=== PATIENT | male | born 1990 | race African-American/Black ===

== ENCOUNTER 2023-06-14 06:54 | Emergency (ER) | payer BC, SELFPAY ==
--- NOTE | ~2023-06-14 | XR_ITS ---
AP and lateral views of the left tibia/fibula Clinical History: Pain Findings: No acute fracture or dislocation is seen. Osseous alignment is anatomic. Joint spaces are p reserved without significant erosive or degenerative change. Soft tissues are unremarkable. Impression: Unremarkable left tib-fib radiographs. Reviewed, dictated and finalized at location . Impression: Unremarkable left tib-fib radiographs.
--- NOTE | ~2023-06-14 | XR_ITS ---
Left ankle Technique: AP, oblique, and lateral views were obtained. Clinical History: Pain Findings: No acute fracture or dislocation is seen. Osseous alignment is anatomic. Ankle mortise and other visualized joint spaces are preserved. Soft tissues are otherwise unremarkable. Impression: No acute fracture or dislocation. Reviewed, dictated and finalized at location . Impression: No acute fracture or dislocation.
[2023-06-14 07:02] VITALS: BP 140/79; PULSE 85; RESP 16; TEMP 36.8; O2SAT 100
--- NOTE | 2023-06-14 07:43 | ED.LOWEXIN ---
HPI - Extremity Injury (Lower) General Chief Complaint: Extremity Injury, Lower Stated Complaint: L ankle injury Time Seen by Provider: 06/14/23 07:43 Source: patient Mode of arrival: ambulatory Limitations: no limitations History of Present Illness HPI Narrative: 32 years old 32 years old -[place] man presents with pain at the back of the left ankle after jumping while playing basketball this morning, felt a pop, denies other injuries. Related Data Allergies Allergy/AdvReac Type Severity Reaction Status Date / Time No Known Allergies Allergy Verified 06/14/23 07:13 Review of Systems Review of Systems: All systems reviewed & are unremarkable except as noted in HPI and below Exam Narrative: General appearance: Well-developed, well-nourished Skin: Normal color Head: Normocephalic, nontraumatic Eyes: Clear conjunctiva ENT: Oropharynx normal, ears normal, nose normal Neck: Supple, nontender Chest and respiratory: Airway patent, no respiratory distress, no accessory muscle use Heart: Regular rate/rhythm Abdomen: Soft, nontender, no organomegaly, quiet bowel sounds Vascular: Normal peripheral pulses, normal capillary refill. 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/PA Physician Supervision Feeling little better after splint placement Reevaluation(s) Reevaluation #1: Feeling a little bit better after splint placement Date: 06/14/23 Time: 09:25 Consultations Consultation #1: DR MICHEL Splint, crutches, outpatient in 2 days Date: 06/14/23 Time: 09:17 Vital Signs Vital signs: Vital Signs Temperature 36.8 C 06/14/23 07:02 Pulse Rate 85 06/14/23 07:02 Respiratory Rate 16 06/14/23 07:02 Blood Pressure 140/79 06/14/23 07:02 Pulse Oximetry 100 06/14/23 07:02 Oxygen Delivery Room Air 06/14/23 07:02 Temperature 36.8 C 06/14/23 07:02 Pulse Rate 85 06/14/23 07:02 Respiratory Rate 16 06/14/23 07:02 Blood Pressure 140/79 06/14/23 07:02 Pulse Oximetry 100 06/14/23 07:02 Oxygen Delivery Room Air 06/14/23 07:02 MDM - Extremity Injury (Lower) MDM Narrative Medical decision making narrative: Patient presents with pain at the left ankle area, Achilles tendon rupture is my concern, physical examination showed positive Choi test and significant dip at the ligament posteriorly indicating complete rupture X-ray of the ankle and tibia and fibula showed no acute abnormalities. In the ED patient received 8 mg of ibuprofen and 1 tablet of [place] p.o., patient to be discharged on splint, crutches, follow-up with Dr. Michel in [address] Michel. Differential Diagnosis Differential diagnosis: Likely ankle sprain and strain, ankle fracture and other (Achilles tendon rupture) Imaging Data Radiologist's impression: Impressions Ankle X-Ray 06/14/23 08:06 Impression: No acute fracture or dislocation. Tibia/Fibula X-Ray 06/14/23 08:06 Impression: Unremarkable left tib-fib radiographs. Critical Care Time Critical Care Time Critical Care Time: Yes Total Critical Care Time: 15 Discharge Plan Discharge Clinical Impression: Achilles tendon rupture Qualifiers: Encounter type: initial encounter Laterality: left Qualified Code(s): S86.012A - Strain of left Achilles tendon, initial encounter Patient Disposition: Home, Self-Care Condition: Stable Instructions: Tendon Rupture (ED) Additional Instructions: Return if symptoms are worsening , call Dr. Michel for appoi
[2023-06-14] MEDS: IBUPROFEN 400 MG TABLET 800 MG PO (07:54)
[2023-06-14] MEDS: HYDROcodone/acetaminophen (*CRX) 7.5-325 MG TABLET 1 TAB PO (07:55)
[2023-06-14 10:01] VITALS: BP 114/74; PULSE 74; RESP 19; O2SAT 100
== END 2023-06-14 10:02 | disposition home or self-care (01) ==
PROVIDERS: Emergency Provider Emergency Medicine; PCP Internal Medicine
DX: S86.012A Strain of left Achilles tendon, initial encounter (principal); X50.0XXA Overexertion from strenuous movement or load, initial encounter; Y93.67 Activity, basketball
CPT/HCPCS: 29515; 73590; 73610; 99284; A9270

== ENCOUNTER 2023-06-17 02:36 | Day surgery (SDC) | payer BC, SELFPAY ==
[2023-06-15 15:10] VITALS: BMI 32.8
--- NOTE | 2023-06-15 15:11 | PC.NURSE ---
Report to the Outpatient Waiting Room, entrance under the green pavilion located off [facility], at time _0600_ on date 06/17/23_. Planned Procedure Time: _0730__. Time changes happen often and if your time is changed the preop area will call you the afternoon before. - You and your visitor will be asked to self-screen and do not enter if you have any COVID symptoms. - A mask is optional within the hospital at this time. Patients may have clear liquids (water, carbonated beverages, clear teas, apple juice) until 3 hours prior to surgery with a maximum of 20 ounces. - No food from midnight until time of surgery - Infants may have breast milk until 4 hours before surgery, formula 6 hours prior to surgery. - Children will be allowed to drink immediately following surgery. If applicable, please bring a bottle or sippy cup to assist with drinking. Juice, water, soda, and popsicles are readily available. For infants on formula, please bring formula the day of surgery. Pacifiers are allowed. Take the following medications with a SIP of water the morning of surgery: _if needed can take Percocet__ DO NOT STOP ANY OF YOUR OTHER PRESCRIPTION MEDICATIONS PRIOR TO SURGERY ?EXCEPT THE FOLLOWING Medications to discontinue per physician __vitamins and supplements 3 days prior____ Date to take last dose Please no make-up, nail yakut, hairspray, perfume, deodorant, or body powder the day of surgery. No jewelry (including any body piercings) or valuables the day of surgery, leave them at home. Please take a shower or bath the night before, or the morning of, surgery with an antibacterial soap. Wear comfortable, loose fitting clothing. Children are encouraged to wear pajamas. - Jewelry must be removed prior to entering the operating room. Rings and piercings that are not removed may be cut off. - The hospital will not accept responsibility for valuables. - Please leave all valuables, including medications, at home the day of surgery. If you are going home after surgery, a licensed wood pile driver operator must drive you home. - NO public transportation without another adult if you receive anesthesia. - We recommend that an adult stay with you for 24 hours following discharge. - We also recommend that you do not drive, make important decision, drink alcoholic beverages, or take any drugs that were not prescribed by your health care provider for at least 24 hours after your discharge time. For Pediatric surgeries, we recommend two adults accompany the child home. Follow any additional instructions given to you from your surgeon. If you or anyone in your household have experienced Covid symptoms in the past week, please notify your surgeon or the nurse liaison at the phone number below for possible testing. Telephone instructions given to _Dr. Michel_and asked if any additional questions and then verbalized understanding. Patient advised to call surgeon office or pre surgery nurse liaison [phone] if any additional questions.
[2023-06-17] VITALS (10 sets, daily range): BP systolic 125–152; BP diastolic 65–94; PULSE 49–88; RESP 13–20; TEMP 36.1–36.6; O2SAT 99–100
[2023-06-17] MEDS: LACTATED RINGERS 1,000 ML 30 ML IV CONT (06:30)
--- NOTE | 2023-06-17 07:00 | WPDHPUPDATE1 ---
History and Physical Update Update Date/Time: 06/17/23 07:00 History and Physical has been reviewed, including an updated exam of the patient. There are NO changes in the patient's condition. Risks, benefits, and alternatives have been discussed and questions answered. Patient agrees to proceed with procedure.
--- NOTE | 2023-06-17 07:05 | WPDANESEPPF ---
Anes - Initial Pre Proc Eval Procedure: Operation Date: 06/17/23 07:30 Proposed Procedures p Left Achilles Tendon Repair - Geoff Michel MD Date/Time: 06/17/23 07:05 Surgeon: Geoff Michel MD Pre Op Diagnosis: left achilles tendon rupture Patient Data Age: 32 Gender: M Height: 1.7 m Weight: 95.25 kg Allergies Allergy/AdvReac Type Severity Reaction Status Date / Time No Known Allergies Allergy Verified 06/15/23 15:03 Home Medications Medication Instructions Recorded Confirmed Type Percocet 5 mg-325 mg tablet 1 tablet PO Q4H PRN pain #20 tabs 06/14/23 06/15/23 Rx (oxycodone-acetaminophen) Patient hx anesthesia problems: none Family hx anesthesia problems: none Results Review: All pre-operative results and documents have been reviewed as part of the pre-operative evaluation. 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 [employer] Gender identity (if verbalized by the patient): Male Spiritual care concerns: No Anes - Eval Final PreProcedure Day of Procedure 06/17/23 07:05 Patient weight: overweight Heart: regular rate and rhythm Lungs: clear to auscultation Airway: Mallampati scale class II Neurological: alert and oriented Last oral intake: >/= 8 hours ASA classification: II Emergent: no Anesthetic plan: proceed Anesthesia type and monitoring: general ETT and standard monitoring Results Review: All pre-operative results and documents have been reviewed as part of the pre-operative evaluation. Informed Consent: The patient's anesthetic plan and its attendant risks and benefits were discussed with the patient/family/POA. Questions were solicited and answers provided to the satisfaction of the patient/family/POA.
[2023-06-17] MEDS: ACETAMINOPHEN 500 MG TABLET 1000 MG PO (07:06)
[2023-06-17] MEDS: KETOROLAC 15 MG/ML VIAL (*BKC) IV PUSH (07:06)
[2023-06-17] MEDS: ceFAZolin 2 GM/D5W 50 ML 2 GM/50 ML BAG IVPB (07:24)
[2023-06-17] MEDS: BUPivacaine HCL 0.5% 10 ML AMP 20 ML INFILTRATE (08:02)
--- NOTE | 2023-06-17 09:11 | P.OP_ITS ---
Procedure Note - Detailed Date of Procedure 06/17/23 Pre-op Diagnosis left achilles tendon rupture Post-op Diagnosis Same Procedure Performed Repair left Achilles tendon rupture Surgeon Geoff Michel MD Pumping Station Supervisor 1st machine operator assistant Anesthesia General Indications 32-year-old gentleman who sustained a rupture of the left Achilles tendon playing basketball. Presents for operative treatment. Description of Procedure Patient identified in the preoperative holding. Informed consent given. Operative extremity marked. Patient received intravenous antibiotics. Patient brought to the operating room where underwent general anesthetic by anesthesia team. Positioned Prone on operating room table. careful securing of the head neck as well as padding for the bony prominences ensured. Once proper position was verified Time-out performed confirming the patient, site of the surgery and the plan. left lower extremity prepped draped usual sterile surgical fashion using a ChloraPrep skin solution. Foot and Ankle exsanguinated and a thigh tourniquet inflated to 250 mmHg. Local anesthetic with 0.5% Marcaine plain. Palpable defect was noted in the Achilles tendon approximately 4 cm above the insertion on the calcaneus. A transverse incision was made with 15 blade knife. Hemostasis controlled electrocautery. Care was taken to identify and retract the sensory elements. The paratenon was then incised in line with the skin incision. This allowed visualization of the Achilles tendon. A complete rupture was noted. Free ends proximally distally were debrided with 15 blade knife. Repair was then performed with the Arthrex Achilles reconstructive system. Sutures were passed proximally through the Achilles tendon substance as well as distally using the suture passing device. A locking stitch was placed on each and. The tendon ends were then approximated and suture was secured. Correct tension was placed at the ankle during repair. After the repair the ankles taken through range of motion repair was noted to be stable. Wound was irrigated and paratenon was closed with 3-0 Monocryl interrupted suture. Subcutaneous tissue repaired with 3-0 Monocryl interrupted suture and the skin was approximated with Dermabond. Sterile dressing applied. The patient was then woken from anesthesia, extubated and taken to the recovery room in stable condition. All sponge, needle, instrument counts were correct at the end of the case. Estimated Blood Loss 5 Tourniquet Time 60 Drains No Packing No Pathology None sent Complications None Condition Stable Disposition PACU [facility] Billing Surgery - Charge Forward: Surgery Billing ([id number])
[2023-06-17] MEDS: fentaNYL CITRATE INJ (*CRX) 100 MCG/2 ML VIAL 25 MCG IV PUSH ×4 (09:35→10:15)
[2023-06-17] MEDS: oxyCODONE HCL (*CRX) 5 MG TAB IR PO (11:05)
== END 2023-06-17 11:50 | disposition home or self-care (01) ==
PROVIDERS: PCP Internal Medicine; Visit Provider Orthopaedic Surgery
PROC: (CPT 27650; principal; 2023-06-17 07:30)
DX: S86.012A Strain of left Achilles tendon, initial encounter (principal); X50.0XXA Overexertion from strenuous movement or load, initial encounter; Y93.67 Activity, basketball
CPT/HCPCS: 27650; A9270; J0690; J1100; J1170; J1885; J2250; J2405; J2704; J3010; J7120